=== PATIENT | male | born 1960 | race Caucasian/White ===

== ENCOUNTER 2016-08-12 14:41 | Inpatient (IN) | payer MEDICAID ==
[~2016-08-12] VITALS: Ht 167.6 cm; Wt 80.0 kg
[2016-08-12 15:15] VITALS: TEMP 98.3
--- NOTE | 2016-08-12 15:27 | ERA ---
ER Documentation Chief Complaint Date/Time DATE: 08/12/16 TIME: 15:27 Chief Complaint INTERMITTENT CP RADIATES TO BACK NON-PROVOKED [id number] HPI The patient is a 55-year-old male, presenting to the ER because of intermittent left-sided chest pain radiating to the back for the last 2 weeks, usually relieved with 1 nitroglycerin. The chest pain has happened more frequently. He went to see his physician at the clinic today who administered aspirin 325 mg p.o. and one nitroglycerin sublingual and transferred him to the ER for further evaluation. He was treated with 1 additional nitroglycerin spray by EMS with good response. He currently does not have any chest pain. When he did have chest pain, it lasted about 15-20 minutes. He denies similar symptoms previously. He does not have chest pain with exertion or vomiting or diaphoresis. He denies abdominal pain, vomiting, dysuria, diarrhea. He does not smoke nor drink Past medical history: Diabetes mellitus, hypertension, dyslipidemia, migraine, allergic rhinitis Past surgical history: Cardiac angiogram with angioplasty at [facility] in 2016, no stent placement ROS All systems reviewed and are negative except as per history of present illness. Medications Home Meds Reported Medications Metoprolol Tartrate* (Lopressor*) 25 Mg Tab, 25 MG PO BID, #60 TAB 08/12/16 Insulin Lispro (Humalog) 100 Unit/1 Ml Cartridge, 20 UNIT SQ 08/12/16 Insulin Lispro (Humalog Kwikpen) 200 Unit/1 Ml Insuln.pen, 200 UNIT SQ AC DINNER , EA 08/12/16 Insulin Glargine* (Lantus*) 100 Unit/Ml Soln, 0 SC BID, #1 VIAL 40 UNITS QAM AND 44 UNITS QHS 08/12/16 Metformin* (Glucophage*) 1,000 Mg Tablet, 1000 MG PO WITH BREAKFAST DINNE, #60 TAB 08/12/16 Nitroglycerin* (Nitrostat*) 0.4 Mg Tab.subl, 0.4 MG SL Q5MIN Y for CHEST PAIN, BOTTLE 08/12/16 Benazepril Hcl* (Benazepril Hcl*) 40 Mg Tablet, 40 MG PO DAILY, #30 TAB 08/12/16 Gabapentin* (Gabapentin*) 100 Mg Capsule, 100 MG PO BID, #90 CAP 08/12/16 Aspirin* (Aspirin* EC) 81 Mg Tablet.dr, 81 MG PO DAILY, TAB 08/12/16 Amitriptyline Hcl* (Amitriptyline Hcl*) 50 Mg Tablet, 50 MG PO QHS, #30 TAB 08/12/16 Atorvastatin* (Atorvastatin*) 80 Mg Tablet, 80 MG PO DAILY, #30 TAB 08/12/16 Famotidine* (Famotidine*) 20 Mg Tablet, 20 MG PO BID, #60 TAB 08/12/16 Loratadine* (Loratadine*) 10 Mg Tablet, 10 MG PO DAILY, #30 TAB 08/12/16 Ferrous Sulfate* (Ferrous Sulfate*) 325 Mg Tabec, 325 MG PO BID, TAB 08/12/16 [place]-3 Fatty Acids/Fish Oil (Fish Oil 1,000 mg Capsule) 1 Each Capsule, 1 EACH PO BID, CAP 08/12/16 Allergies Allergies: Coded Allergies: No Known Allergy (Unverified , 08/12/16) Physical Exam Vitals Vital Signs Date Time Temp Pulse Resp B/P Pulse Ox O2 Delivery O2 Flow Rate FiO2 08/12/16 17:41 58 18 146/83 99 Nasal Cannula 2.0 08/12/16 15:39 Nasal Cannula 2 08/12/16 15:15 98.3 68 18 146/79 99 Room Air 08/12/16 14:43 98.3 77 18 129/65 97 Physical Exam Const: No acute distress. Head: Atraumatic. Eyes: Normal Conjunctiva. ENT: Normal External Ears, Nose and Mouth. Neck: Full range of motion. No meningismus. Resp: Clear to auscultation bilaterally. Cardio: Regular rate and rhythm, no murmurs. Abd: Soft, non distended, normal bowel sounds, non tender. Skin: No petechiae or rashes. Back: No midline or flank tenderness. Ext: No cyanosis, or edema. Neur: Awake and alert. No focal deficit Psych: Normal Mood and Affect. Result Diagram: 08/12/16 1524 08/12/16 1524 Results 24 hrs Laboratory Tests Test 08/12/16 15:24 White Blood Count 7.410^3/ul Red Blood Count 4.1610^6/ul Hemoglobin 13.2g/dl Hematocrit 38.6% Mean Corpuscular Volume 92.8fl Mean Corpuscular Hemoglobin 31.7pg Mean Corpuscular Hemoglobin Concent 34.2g/dl Red Cell Distribution Width 12.6% Platelet Count 60823^3/UL Mean Platelet Volume 9.3fl Neutrophils % 57.0% Lymphocytes % 32.1% Monocytes % 7.9% Eosinophils % 2.4% Basophils % 0.3% Nucleated Red Blood Cells % 0.0/100WBC Neutrophils # 4.210^3/ul Lymphocytes # 2.410^3/ul Monocytes # 0.610^3/ul Eosinophils # 0.210^3/ul Basophils # 0.010^3/ul Nucleated Red Blood Cells # 0.010^3/ul Prothrombin Time 11.9Sec Prothrombin Time Ratio 0.9 INR International Normalized Ratio 0.88 Activated Partial Thromboplast Time 26.1Sec D-Dimer 236.80ng/ml D-Dimer Comment Sodium Level 136mmol/L Potassium Level 4.8mmol/L Chloride Level 99mmol/L Carbon Dioxide Level 27mmol/L Anion Gap 15 Blood Urea Nitrogen 12mg/dl Creatinine 0.69mg/dl Glucose Level 236mg/dl Hemoglobin A1c 10.1% Calcium Level 9.7mg/dl Troponin I < 0.012ng/ml Current Medications Medications (Trade) Dose Ordered Sig/Johnnie Route PRN Reason Start Time Stop Time Status Last Admin Dose Admin Amitriptyline HCl (Elavil) 50 mg QHS PO 08/12/16 21:00 UNV Aspirin (Halfprin) 81 mg DAILY PO 08/13/16 09:00 Atorvastatin Calcium (Lipitor) 80 mg DAILY PO 08/13/16 09:00 Benazepril HCl (Lotensin) 40 mg DAILY PO 08/13/16 09:00 Famotidine (Pepcid) 20 mg BID PO 08/12/16 21:00 Ferrous Sulfate (Ferrous Sulfate (Ec)) 325 mg BID PO 08/12/16 21:00 Gabapentin (Neurontin) 100 mg BID PO 08/12/16 21:00 Insulin Glargine (Lantus) 12 unit QHS SC 08/12/16 21:00 UNV Loratadine (Claritin) 10 mg DAILY PO 08/13/16 09:00 Metoprolol Tartrate (Lopressor) 25 mg BID PO 08/12/16 21:00 Fish Oil (Fish Oil) 1,000 mg BID PO 08/12/16 21:00 IV Flush (NS 3 ml) 3 ml PER PROTOCOL IV 08/12/16 17:30 Ondansetron HCl (Zofran Inj) 4 mg Q6H PRN IV NAUSEA AND/OR VOMITING 08/12/16 17:30 Acetaminophen (Tylenol Tab) 650 mg Q6H PRN PO PAIN LEVEL 1-3 OR FEVER 08/12/16 17:30 Acetaminophen (Tylenol Supp) 650 mg Q6H PRN [place] PAIN LEVEL 1-3 OR FEVER 08/12/16 17:30 Acetaminophen/ Hydrocodone Bitart ([place] (5/325)) 1 tab Q6H PRN PO MODERATE PAIN LEVEL 4-6 08/12/16 17:30 Acetaminophen/ Hydrocodone Bitart ([place] (5/325)) 2 tab Q6H PRN PO SEVERE PAIN LEVEL 7-10 08/12/16 17:30 Morphine Sulfate (morphine) 2 mg Q4H PRN IV SEVERE PAIN LEVEL 7-10 08/12/16 17:30 Docusate Sodium (Colace) 100 mg Q12H PRN PO CONSTIPATION 08/12/16 17:30 Magnesium Hydroxide (Milk Of Mag) 30 ml DAILY PRN PO CONSTIPATION 08/12/16 17:30 Bisacodyl (Dulcolax Supp) 10 mg DAILY PRN [place] CONSTIPATION 08/12/16 17:30 Heparin Sodium (Porcine) (Heparin (5000 Units/0.5 ml)) 5,000 unit Q12 SC 08/12/16 21:00 Insulin Aspart (Novolog Insulin Pen) NOVOLOG *MILD* ALGORITHM WITH MEALS BEDTIME SC 08/12/16 18:00 UNV Insulin Aspart (Novolog Insulin Pen) 4 unit WITH MEALS SC 08/12/16 18:00 UNV Miscellaneous Information (* Miscellaneous Pharmacy Order) HYPOGLYCEMIA PROTOCOL w... ONCE ONCE XX 08/12/16 17:30 08/12/16 17:51 DC Miscellaneous Information (* Miscellaneous Pharmacy Order) Discontinue Glyburide, Glipizide,... ONCE ONCE XX 08/12/16 17:30 08/12/16 17:50 DC Miscellaneous Information (* Miscellaneous Pharmacy Order) Discontinue all previ... ONCE ONCE XX 08/12/16 17:30 08/12/16 17:50 DC Nitroglycerin (Nitroglycerin (Sl Tab) 0.4 Mg) 1 tab Q5M PRN SL CHEST PAIN 08/12/16 17:30 Miscellaneous Information 1 ea NOTE XX 08/12/16 18:00 Glucose (Glutose) 15 gm Q15M PRN PO DECREASED GLUCOSE 08/12/16 18:00 Glucose (Glutose) 22.5 gm Q15M PRN PO DECREASED GLUCOSE 08/12/16 18:00 Dextrose (D50w Syringe) 25 ml Q15M PRN IV DECREASED GLUCOSE 08/12/16 18:00 Dextrose (D50w Syringe) 50 ml Q15M PRN IV DECREASED GLUCOSE 08/12/16 18:00 Glucagon (Glucagen) 1 mg Q15M PRN IM DECREASED GLUCOSE 08/12/16 18:00 Glucose (Glutose) 15 gm Q15M PRN BUCCAL DECREASED GLUCOSE 08/12/16 18:00 Procedures/MDM EKG: At 3:40 PM read by emergency physician Rate/Rhythm: Normal Sinus Rhythm 69 beats/min QRS, ST, T-waves: No ST elevation, no T inversion, right bundle branch block , inferior Q waves and T inversion, anterior T-wave abnormality Impression: Abnormal EKG EKG: At 5:29 PM read by emergency physician Rate/Rhythm: Normal Sinus Rhythm 66 beats/min QRS, ST, T-waves: No ST elevation, no T inversion, right bundle branch block , inferior , lateral T-wave abnormality Impression: Abnormal EKG [place] [id number] Radiology Main Line: [phone] DIAGNOSTIC IMAGING REPORT Patient: SAL WOOD : 1960 Age: 55 Sex: M MR #: [id number] DOS: 08/12/16 1536 Ordering MD: FATOUMATA RICHARDSON MD Location: E/R Room/Bed: PROCEDURE: XR Chest. CLINICAL INDICATION: chest pain TECHNIQUE: Single frontal view of the chest was obtained COMPARISON: None FINDINGS: The heart and mediastinum are within normal limits. There are mild linear bibasilar atelectatic changes. The lungs are otherwise clear. There is no pleural effusion or pneumothorax. RPTAT: AA IMPRESSION: Mild linear bibasilar atelectatic changes. .Art Smith MD, Date Time Electronically viewed and signed by .Art Smith MD, on 08/12/2016 15: 59 .S/ CC: FATOUMATA RICHARDSON MD MEDICAL MAKING DECISION: The patient is a 55-year-old male with multiple cardiac risk factors, presenting with acute chest pain that is concerning for ACS. His chest pain is minimal in the emergency department. The differential diagnoses considered include but are not limited to acute coronary syndrome, acute myocardial infarction, pericarditis, pulmonary embolism , aortic dissection, pneumonia, pleural effusion, pneumothorax, GERD, chest wall pain. Departure Diagnosis: Primary Impression: Chest pain Additional Impression: Anemia Condition: Stable Comments I discussed the findings with the patient. I discussed the patient with the on- call hospitalist Dr. Spence at 4:40 PM who was made aware of the lab, the treatment, the patient condition. The patient is admitted to telemetry FATOUMATA RICHARDSON MD August 12, 2016 15:27
[2016-08-12 15:48] LABS: ADD SCAN DIFF NO
[2016-08-12 15:52] LABS: BASOPHILS % 0.3 % (0.0-2.0); EOSINOPHILS # 0.2 10^3/ul (0.0-0.5); EOSINOPHILS % 2.4 % (0.0-7.0); HEMATOCRIT 38.6 % (42.0-52.0); HEMOGLOBIN 13.2 g/dl (14.0-18.0); LYMPHOCYTES # 2.4 10^3/ul (0.8-2.9); LYMPHOCYTES % 32.1 % (15.0-51.0); MEAN CORPUSCULAR HEMOGLOBIN 31.7 pg (29.0-33.0); MEAN CORPUSCULAR HGB CONC 34.2 g/dl (32.0-37.0); MEAN CORPUSCULAR VOLUME 92.8 fl (82.0-101.0); MEAN PLATELET VOLUME 9.3 fl (7.4-10.4); MONOCYTE # 0.6 10^3/ul (0.3-0.9); MONOCYTES % 7.9 % (0.0-11.0); NEUTROPHIL # 4.2 10^3/ul (1.6-7.5); PLATELET COUNT 316 10^3/UL (140-415); RED BLOOD COUNT 4.16 10^6/ul (4.70-6.10); RED CELL DISTRIBUTION WIDTH 12.6 % (11.5-14.5); WHITE BLOOD COUNT 7.4 10^3/ul (4.8-10.8)
--- NOTE | 2016-08-12 15:59 | RADRPT ---
PROCEDURE: XR Chest. CLINICAL INDICATION: chest pain TECHNIQUE: Single frontal view of the chest was obtained COMPARISON: None FINDINGS: The heart and mediastinum are within normal limits. There are mild linear bibasilar atelectatic changes. The lungs are otherwise clear. There is no pleural effusion or pneumothorax. RPTAT: AA IMPRESSION: Mild linear bibasilar atelectatic changes. .Art Smith MD, MD Date Time Electronically viewed and signed by .Art Smith MD, on 08/12/2016 15:59 .S/
[2016-08-12] MEDS ORDERED: LORA10TA3 PO (16:05)
[2016-08-12] MEDS ORDERED: FER325 PO (16:05)
[2016-08-12] MEDS ORDERED: OMEG-135 PO (16:05)
[2016-08-12] MEDS ORDERED: FAMO20TA18 PO (16:06)
[2016-08-12] MEDS ORDERED: ATOR80TA75 PO (16:06)
[2016-08-12] MEDS ORDERED: AMIT50TA3 PO (16:07)
[2016-08-12] MEDS ORDERED: ASPI-664 PO (16:07)
[2016-08-12] MEDS ORDERED: BENA40TA41 PO (16:08)
[2016-08-12] MEDS ORDERED: NIT4 SL (16:08)
[2016-08-12] MEDS ORDERED: GABA100C14 PO (16:08)
[2016-08-12] MEDS ORDERED: MTF1000T PO (16:09)
[2016-08-12] MEDS ORDERED: LANT3I SC (16:10)
[2016-08-12] MEDS ORDERED: INSU200I SQ (16:11)
[2016-08-12] MEDS ORDERED: INSU100C SQ (16:11)
[2016-08-12 16:15] LABS: ANION GAP 15 (8-16); BLOOD UREA NITROGEN 12 mg/dl (7-20); CALCIUM 9.7 mg/dl (8.4-10.2); CARBON DIOXIDE 27 mmol/L (21-31); CHLORIDE 99 mmol/L (97-110); CREATININE 0.69 mg/dl (0.61-1.24); GLUCOSE 236 mg/dl (70-220); POTASSIUM 4.8 mmol/L (3.5-5.1); SODIUM 136 mmol/L (135-144)
[2016-08-12] MEDS ORDERED: METO-448 PO (16:20)
[2016-08-12 16:21] LABS: INR 0.88; PROTIME 11.9 Sec (12.2-14.2); PT RATIO 0.9
[2016-08-12 16:22] LABS: PARTIAL THROMBOPLASTIN TIME 26.1 Sec (25.0-35.0)
[2016-08-12 16:24] LABS: D-DIMER 236.8 ng/ml (<460)
[2016-08-12 16:36] LABS: TROPONIN-I < 0.012 ng/ml (0.00-0.12)
--- NOTE | 2016-08-12 17:27 | HP ---
Date/Time of Note Date/Time of Note DATE: 08/12/16 TIME: 17:21 Assessment/Plan VTE Prophylaxis VTE Prophylaxis Intervention: heparin Lines/Catheters IV Catheter Type (from [facility]): Saline Lock Assessment/Plan Chief Complaint/Hosp Course Impression and plan 1. Chest pain. Rule out ACS. Follow-up until troponins. Follow-up on echocardiogram. Considering patient's medical history we will get cardiology consultation. Of note patient did report he had a angiogram 2015 without stent placed. He did mention that he had "opening of my arteries" at that time. Will monitor on telemetry 2. Essential hypertension. Continue antihypertensives and adjust as needed 3. History of dyslipidemia. Follow-up on fasting lipid panel. Patient to be resumed on statin medication 4. History of diabetes. Follow-up on A1c. Continue on insulin regimen. Will adjust as needed. 5. History of CAD. Continue on ASA and statin 6. Iron deficiency anemia. Will resume patient's iron supplement DVT prophylaxis: Heparin Admission process 40 minutes Discussed plan of care with Dr. Spence Problems: HPI/ROS Admit Date/Time Admit Date/Time Hx of Present Illness Is a 55-year-old male with history of coronary artery disease, hypertension, dysrhythmia, diabetes, iron deficiency anemia, who came to [facility] due to reports of chest pain. According to the patient he had been having intermittent chest pain for 2 weeks duration. He reported that it would occur at times when he would lie down and sometimes even when sitting down and resting. He reported no obvious exertional chest pain. he stated that the pain was initially sharp and then became pressure-like in nature 10 out of 10 on the left side of his body. He also had associated shortness of breath. Of note he does state that he takes nitro whenever he has chest pain and took it when it started 2 weeks ago 1 with relief. Patient did report that his chest pain had worsened last night around 11:30 PM that woke him up and then went to his clinic to see his primary physician on the day of his admission and was told to go to the hospital due to his persistent chest pain. Of note he was given aspirin 325 mg there and then also took 1 dose of oral nitro as well as nitro via spray which she did report having good relief. On arrival to the hospital initial troponin was negative. He was seen with some hyperglycemia with glucose of 236 and some anemia with hemoglobin of 13.2 and hematocrit of 38.6. Chest x-ray only showed mild linear bibasilar atelectatic changes. Vital signs otherwise stable. We will evaluate him for the aformentiond issues ROS 12 point review of systems obtained entirely negative except that mentioned in history of present illness PMH/Family/Social Past Medical History Medical/surgical history 1. History of coronary artery disease with previous angiogram in 2016 (no stent placed at that time) 2. Hypertension 3. Diabetes 4. Dyslipidemia Social History Smoking Status: Never smoker Exam/Review of Systems Vital Signs Vitals Vital Signs Date Time Temp Pulse Resp B/P Pulse Ox O2 Delivery O2 Flow Rate FiO2 08/12/16 15:39 Nasal Cannula 2 08/12/16 15:15 98.3 68 18 146/79 99 Exam Constitutional: alert, oriented Psych: nl mood/affect, no complaints Head: normocephalic Neck: supple, No jvd Respiratory: clear to auscultation, normal air movement Cardiovascular: regular rate and rhythm Gastrointestinal: non-tender, soft Musculoskeletal: nl extremities to inspection, nl gait and stance Extremities: normal pulses Labs Result Diagram: 08/12/16 1524 08/12/16 1524 Medications Medications Current Medications Amitriptyline HCl (Elavil) 50 mg QHS PO ; Start 08/12/16 at 21:00; Status UNV Aspirin (Halfprin) 81 mg DAILY PO ; Start 08/13/16 at 09:00; Status UNV Atorvastatin Calcium (Lipitor) 80 mg DAILY PO ; Start 08/13/16 at 09:00; Status UNV Benazepril HCl (Lotensin) 40 mg DAILY PO ; Start 08/13/16 at 09:00; Status UNV Famotidine (Pepcid) 20 mg BID PO ; Start 08/12/16 at 21:00; Status UNV Ferrous Sulfate (Ferrous Sulfate (Ec)) 325 mg BID PO ; Start 08/12/16 at 21:00; Status UNV Gabapentin (Neurontin) 100 mg BID PO ; Start 08/12/16 at 21:00; Status UNV Insulin Glargine (Lantus) 12 unit QHS SC ; Start 08/12/16 at 21:00; Status UNV Loratadine (Claritin) 10 mg DAILY PO ; Start 08/13/16 at 09:00; Status UNV Metoprolol Tartrate (Lopressor) 25 mg BID PO ; Start 08/12/16 at 21:00; Status UNV Miscellaneous Information 1 each BID PO ; Start 08/12/16 at 21:00; Status UNV Ondansetron HCl (Zofran Inj) 4 mg Q6H PRN IV NAUSEA AND/OR VOMITING; Start at 17:30; Status UNV Acetaminophen (Tylenol Tab) 650 mg Q6H PRN PO PAIN LEVEL 1-3 OR FEVER; Start at 17:30; Status UNV Acetaminophen (Tylenol Supp) 650 mg Q6H PRN [place] PAIN LEVEL 1-3 OR FEVER; Start 08/12/16 at 17:30; Status UNV Acetaminophen/ Hydrocodone Bitart ([place] (5/325)) 1 tab Q6H PRN PO MODERATE PAIN LEVEL 4-6; Start 08/12/16 at 17:30; Status UNV Acetaminophen/ Hydrocodone Bitart ([place] (5/325)) 2 tab Q6H PRN PO SEVERE PAIN LEVEL 7-10; Start 08/12/16 at 17:30; Status UNV Morphine Sulfate (morphine) 2 mg Q4H PRN IV SEVERE PAIN LEVEL 7-10; Start 08/12 at 17:30; Status UNV Docusate Sodium (Colace) 100 mg Q12H PRN PO CONSTIPATION; Start 08/12/16 at 17: 30; Status UNV Magnesium Hydroxide (Milk Of Mag) 30 ml DAILY PRN PO CONSTIPATION; Start at 17:30; Status UNV Bisacodyl (Dulcolax Supp) 10 mg DAILY PRN [place] CONSTIPATION; Start 08/12/16 at 17 :30; Status UNV Heparin Sodium (Porcine) (Heparin (5000 Units/0.5 ml)) 5,000 unit Q12 SC ; Start 08/12/16 at 21:00; Status UNV Miscellaneous Information (* Miscellaneous Pharmacy Order) HYPOGLYCEMIA PROTOCOL w... ONCE ONCE XX ; Start 08/12/16 at 17:30; Stop 08/12/16 at 17:31; Status UNV Miscellaneous Information (* Miscellaneous Pharmacy Order) Discontinue Glyburide , Glipizide,... ONCE ONCE XX ; Start 08/12/16 at 17:30; Stop 08/12/16 at 17:31 ; Status UNV Miscellaneous Information (* Miscellaneous Pharmacy Order) Discontinue all previ... ONCE ONCE XX ; Start 08/12/16 at 17:30; Stop 08/12/16 at 17:31; Status UNV Nitroglycerin (Nitroglycerin (Sl Tab) 0.4 Mg) 1 tab Q5M PRN SL CHEST PAIN; Start 08/12/16 at 17:30; Status UNV MAYO LORENZ August 12, 2016 17:27
[2016-08-12] MEDS ORDERED: ACETAMINOPHEN 650 MG SUPP PR PRN (17:30)
[2016-08-12] MEDS ORDERED: NACL 0.9% 3 ML SYG IV SCH (17:30)
[2016-08-12] MEDS ORDERED: MAGNESIUM HYDROXIDE 30ML CUP PO PRN (17:30)
[2016-08-12] MEDS ORDERED: ONDANSETRON 4 MG INJ IV PRN (17:30)
[2016-08-12] MEDS ORDERED: ACETAMINOPHEN 325 MG TAB PO PRN (17:30)
[2016-08-12] MEDS ORDERED: HYDROCODONE/APAP (5/325) TAB PO PRN ×2 (17:30)
[2016-08-12] MEDS ORDERED: DOCUSATE SODIUM 100 MG CAP PO PRN (17:30)
[2016-08-12] MEDS ORDERED: NITROGLYCERIN (SL) 0.4 MG TAB SL PRN (17:30)
[2016-08-12] MEDS ORDERED: morphine 2 MG INJ IV PRN (17:30)
[2016-08-12] MEDS ORDERED: BISACODYL 10 MG SUPP PR PRN (17:30)
[2016-08-12] MEDS ORDERED: GLUCOSE GEL 15 GRAM TUBE BUCCAL PRN (18:00)
[2016-08-12] MEDS ORDERED: GLUCOSE GEL 15 GRAM TUBE PO PRN ×2 (18:00)
[2016-08-12] MEDS ORDERED: DEXTROSE 50% 50 ML SYRINGE IV PRN ×2 (18:00)
[2016-08-12] MEDS ORDERED: GLUCAGON 1 MG INJ IM PRN (18:00)
[2016-08-12 18:53] VITALS: BP 165/79; PULSE 62; RESP 18
[2016-08-12 19:51] VITALS: BP 127/73; RESP 19
[2016-08-12 20:00] VITALS: PULSE 56; Ht 167.6 cm; Wt 80.0 kg
[2016-08-12 20:34] LABS: CREATINE KINASE 65 IU/L (23-200)
[2016-08-12 20:49] LABS: CK-MB < 0.22 ng/ml (0.0-2.4); TROPONIN-I < 0.012 ng/ml (0.00-0.12)
[2016-08-12] MEDS: INSULIN ASPART [NOVOLOG] 3 ML PEN SC SCH (21:00)
[2016-08-12] MEDS: FISH OIL 1,000 MG CAP PO SCH (21:25)
[2016-08-12] MEDS: FAMOTIDINE 20 MG TAB PO SCH (21:25)
[2016-08-12] MEDS: FERROUS SULFATE (EC) 325 MG TAB PO SCH (21:25)
[2016-08-12] MEDS: GABAPENTIN 100 MG CAP PO SCH (21:25)
[2016-08-12] MEDS: AMITRIPTYLINE 50 MG TAB PO SCH (21:25)
[2016-08-12] MEDS: INSULIN GLARGINE [LANtus] 3 ML PEN SC SCH (21:29)
[2016-08-12] MEDS: HEPARIN 5,000 UNIT/0.5 ML VIAL SC SCH (21:30)
[2016-08-12] MEDS: METOPROLOL 25 MG TAB PO SCH (21:50)
[2016-08-13] VITALS (13 sets, daily range): BP systolic 120–145; BP diastolic 60–82; PULSE 57–62; RESP 18–20
[2016-08-13 04:35] LABS: POTASSIUM 3.7 mmol/L (3.5-5.1)
[2016-08-13 04:37] LABS: BILIRUBIN,INDIRECT 0.7 mg/dl (0-1.1); BILIRUBIN,TOTAL 0.7 mg/dl (0.2-1.3); CREATININE 0.67 mg/dl (0.61-1.24)
[2016-08-13 04:38] LABS: ALBUMIN/GLOBULIN RATIO 1.25; CALCIUM 9.3 mg/dl (8.4-10.2); PHOSPHORUS 4.8 mg/dl (2.5-4.9); TOTAL PROTEIN 7.2 g/dl (6.1-8.1)
[2016-08-13 04:39] LABS: MAGNESIUM 1.8 mg/dl (1.7-2.5)
[2016-08-13 04:45] LABS: CREATINE KINASE 64 IU/L (23-200)
[2016-08-13 04:48] LABS: CK-MB < 0.22 ng/ml (0.0-2.4)
[2016-08-13 04:54] LABS: TROPONIN-I < 0.012 ng/ml (0.00-0.12)
[2016-08-13 05:38] LABS: T3 UPTAKE 32.6 % (23.5-40.5)
[2016-08-13 05:52] LABS: THYROID STIMULATING HORMONE 1.54 MIU/L (0.465-4.680)
[2016-08-13] MEDS: INSULIN ASPART [NOVOLOG] 3 ML PEN SC SCH ×7 (07:52→21:21)
[2016-08-13] MEDS: HEPARIN 5,000 UNIT/0.5 ML VIAL SC SCH ×2 (08:44→21:20)
[2016-08-13] MEDS: GABAPENTIN 100 MG CAP PO SCH ×2 (09:00→21:15)
[2016-08-13] MEDS: METOPROLOL 25 MG TAB PO SCH ×2 (09:00→21:15)
[2016-08-13] MEDS: FAMOTIDINE 20 MG TAB PO SCH ×2 (09:00→21:15)
[2016-08-13] MEDS: ASPIRIN (EC) 81 MG TAB PO SCH (09:00)
[2016-08-13] MEDS: FISH OIL 1,000 MG CAP PO SCH ×2 (09:00→21:15)
[2016-08-13] MEDS: LORATADINE 10 MG TAB PO SCH (09:00)
[2016-08-13] MEDS: BENAZEPRIL 40 MG TAB PO SCH (09:00)
[2016-08-13] MEDS: FERROUS SULFATE (EC) 325 MG TAB PO SCH ×2 (09:00→21:15)
[2016-08-13] MEDS: ATORVASTATIN 80 MG TAB PO SCH (09:00)
[2016-08-13 10:52] LABS: CREATINE KINASE 60 IU/L (23-200)
[2016-08-13 11:34] LABS: CK-MB < 0.22 ng/ml (0.0-2.4)
[2016-08-13 11:57] LABS: TROPONIN-I < 0.012 ng/ml (0.00-0.12)
--- NOTE | 2016-08-13 20:40 | PN ---
Date/Time of Note Date/Time of Note DATE: 08/13/16 TIME: 20:29 Assessment/Plan VTE Prophylaxis VTE Prophylaxis Intervention: heparin Lines/Catheters IV C[facility] Type (from [facility] Saline Lock Urinary Cath still in place: No Assessment/Plan Chief Complaint/Hosp Course Impression and plan 1. Chest pain. serial troponins negative. Follow-up on echocardiogram. Awaiting cardiology consultation . Of note patient did report he had a angiogram 2015 without stent placed. 2. Essential hypertension. Continue antihypertensives and adjust as needed 3. History of dyslipidemia. continue on statin medication 4. History of diabetes. Continue on insulin regimen. Will adjust as needed. 5. History of CAD. Continue on ASA and statin 6. Iron deficiency anemia. Will resume patient's iron supplement DVT prophylaxis: Heparin DISPO/PLAN: follow up with cardiology recs. continue telemetry monitoring Discussed plan of care with Dr. Spence Problems: Subjective 24 Hr Interval Summary Free Text/Dictation does not report chest pain at this time Exam/Review of Systems Vital Signs Vitals Vital Signs Date Time Temp Pulse Resp B/P Pulse Ox O2 Delivery O2 Flow Rate FiO2 08/13/16 20:22 62 08/13/16 20:08 98.0 20 143/79 96 08/12/16 18:53 Room Air 08/12/16 17:41 2.0 Intake and Output 08/12/16 08/12/16 08/13/16 14:59 22:59 06:59 Intake Total 100 ml Output Total 2 ml Balance 98 ml Exam Constitutional: alert, oriented Psych: nl mood/affect Head: normocephalic Neck: supple, No jvd Respiratory: clear to auscultation Cardiovascular: regular rate and rhythm Gastrointestinal: non-tender, soft Musculoskeletal: nl extremities to inspection Neurological: MANAGER REGISTRATION II-XII intact, nl mental status, nl speech Skin: No rash or lesions Results Result Diagram: 08/12/16 1524 08/13/16 0337 Results 24 hrs Laboratory Tests Test 08/12/16 20:48 08/13/16 03:37 08/13/16 07:50 08/13/16 10:20 Bedside Glucose 126 89 Sodium Level 144 Potassium Level 3.7 Chloride Level 102 Carbon Dioxide Level 28 Anion Gap 18 H Blood Urea Nitrogen 10 Creatinine 0.67 Glucose Level 74 # Calcium Level 9.3 Phosphorus Level 4.8 Magnesium Level 1.8 Total Bilirubin 0.7 Direct Bilirubin 0.00 Indirect Bilirubin 0.7 Aspartate Amino Transf (AST/SGOT) 54 H Alanine Aminotransferase (ALT/SGPT) 93 H Alkaline Phosphatase 59 Creatine Kinase 64 60 Creatine Kinase Index 0.3 0.4 Creatinine Kinase MB (Mass) < 0.22 < 0.22 Troponin I < 0.012 < 0.012 Total Protein 7.2 Albumin 4.0 Globulin 3.20 Albumin/Globulin Ratio 1.25 Triglycerides Level 135 Cholesterol Level 124 LDL Cholesterol, Calculated 56 HDL Cholesterol 41 Cholesterol/HDL Ratio 3.0 Thyroid Stimulating Hormone (TSH) 1.540 Free Thyroxine Index 2.31 Thyroxine (T4) 7.1 Triiodothyronine (T3) Uptake 32.6 Test 08/13/16 11:24 08/13/16 17:01 Bedside Glucose 90 91 Medications Medications Current Medications Amitriptyline HCl (Elavil) 50 mg QHS PO Last administered on 08/12/16 21:25; Admin Dose 50 MG; Start 08/12/16 at 21:00 Aspirin (Halfprin) 81 mg DAILY PO ; Start 08/13/16 at 09:00 Atorvastatin Calcium (Lipitor) 80 mg DAILY PO ; Start 08/13/16 at 09:00 Benazepril HCl (Lotensin) 40 mg DAILY PO ; Start 08/13/16 at 09:00 Famotidine (Pepcid) 20 mg BID PO Last administered on 08/12/16 21:25; Admin Dose 20 MG; Start 08/12/16 at 21:00 Ferrous Sulfate (Ferrous Sulfate (Ec)) 325 mg BID PO Last administered on 21:25; Admin Dose 325 MG; Start 08/12/16 at 21:00 Gabapentin (Neurontin) 100 mg BID PO Last administered on 08/12/16 21:25; Admin Dose 100 MG; Start 08/12/16 at 21:00 Insulin Glargine (Lantus) 12 unit QHS SC Last administered on 08/12/16 21:29; Admin Dose 12 UNIT; Start 08/12/16 at 21:00 Loratadine (Claritin) 10 mg DAILY PO ; Start 08/13/16 at 09:00 Metoprolol Tartrate (Lopressor) 25 mg BID PO Last administered on 08/12/16 21: 50; Admin Dose 25 MG; Start 08/12/16 at 21:00 Fish Oil (Fish Oil) 1,000 mg BID PO Last administered on 08/12/16 21:25; Admin Dose 1,000 MG; Start 08/12/16 at 21:00 Ondansetron HCl (Zofran Inj) 4 mg Q6H PRN IV NAUSEA AND/OR VOMITING; Start at 17:30 Acetaminophen (Tylenol Tab) 650 mg Q6H PRN PO PAIN LEVEL 1-3 OR FEVER; Start at 17:30 Acetaminophen (Tylenol Supp) 650 mg Q6H PRN [place] PAIN LEVEL 1-3 OR FEVER; Start 08/12/16 at 17:30 Acetaminophen/ Hydrocodone Bitart ([place] (5/325)) 1 tab Q6H PRN PO MODERATE PAIN LEVEL 4-6; Start 08/12/16 at 17:30 Acetaminophen/ Hydrocodone Bitart ([place] (5/325)) 2 tab Q6H PRN PO SEVERE PAIN LEVEL 7-10; Start 08/12/16 at 17:30 Morphine Sulfate (morphine) 2 mg Q4H PRN IV SEVERE PAIN LEVEL 7-10; Start 08/12 at 17:30 Docusate Sodium (Colace) 100 mg Q12H PRN PO CONSTIPATION; Start 08/12/16 at 17: 30 Magnesium Hydroxide (Milk Of Mag) 30 ml DAILY PRN PO CONSTIPATION; Start at 17:30 Bisacodyl (Dulcolax Supp) 10 mg DAILY PRN [place] CONSTIPATION; Start 08/12/16 at 17 :30 Heparin Sodium (Porcine) (Heparin (5000 Units/0.5 ml)) 5,000 unit Q12 SC Last administered on 08/13/16 08:44; Admin Dose 5,000 UNIT; Start 08/12/16 at 21:00 Nitroglycerin (Nitroglycerin (Sl Tab) 0.4 Mg) 1 tab Q5M PRN SL CHEST PAIN; Start 08/12/16 at 17:30 Miscellaneous Information 1 ea NOTE XX ; Start 08/12/16 at 18:00 Glucose (Glutose) 15 gm Q15M PRN PO DECREASED GLUCOSE; Start 08/12/16 at 18:00 Glucose (Glutose) 22.5 gm Q15M PRN PO DECREASED GLUCOSE; Start 08/12/16 at 18: 00 Dextrose (D50w Syringe) 25 ml Q15M PRN IV DECREASED GLUCOSE; Start 08/12/16 at 18:00 Dextrose (D50w Syringe) 50 ml Q15M PRN IV DECREASED GLUCOSE; Start 08/12/16 at 18:00 Glucagon (Glucagen) 1 mg Q15M PRN IM DECREASED GLUCOSE; Start 08/12/16 at 18:00 Glucose (Glutose) 15 gm Q15M PRN BUCCAL DECREASED GLUCOSE; Start 08/12/16 at 18 :00 MAYO LORENZ August 13, 2016 20:40
[2016-08-13] MEDS: AMITRIPTYLINE 50 MG TAB PO SCH (21:15)
[2016-08-13] MEDS: INSULIN GLARGINE [LANtus] 3 ML PEN SC SCH (21:40)
[2016-08-14] VITALS (10 sets, daily range): BP systolic 120–130; BP diastolic 62–77; PULSE 54–73; RESP 18–20
[2016-08-14] MEDS: INSULIN ASPART [NOVOLOG] 3 ML PEN SC SCH ×4 (08:12→12:07)
[2016-08-14] MEDS: ATORVASTATIN 80 MG TAB PO SCH (08:15)
[2016-08-14] MEDS: FISH OIL 1,000 MG CAP PO SCH (08:15)
[2016-08-14] MEDS: ASPIRIN (EC) 81 MG TAB PO SCH (08:15)
[2016-08-14] MEDS: GABAPENTIN 100 MG CAP PO SCH (08:15)
[2016-08-14] MEDS: LORATADINE 10 MG TAB PO SCH (08:15)
[2016-08-14] MEDS: FERROUS SULFATE (EC) 325 MG TAB PO SCH (08:16)
[2016-08-14] MEDS: FAMOTIDINE 20 MG TAB PO SCH (08:16)
[2016-08-14] MEDS: METOPROLOL 25 MG TAB PO SCH (08:17)
[2016-08-14] MEDS: BENAZEPRIL 40 MG TAB PO SCH (08:17)
[2016-08-14] MEDS: HEPARIN 5,000 UNIT/0.5 ML VIAL SC SCH (08:58)
--- NOTE | 2016-08-14 10:02 | RADRPT ---
Echocardiogram Report Patient Name: SAL WOOD Gender: Male Date: 1960 Study Date: 13-Aug-2016 Validation Analyst: ANA Location: E Ref. Physician: MAYO LORENZ Quality: Adequate Procedures: Transthoracic echocardiogram with complete 2D, M-Mode, and Doppler examination. Indications: Chest Pain. 2D/M Mode Doppler Measurement Value Normal Ranges Measurement Value Normal Ranges AoR Diam MM 3.8 cm AV Peak Domingo 0.9 m/sec ACS MM 2.0 cm AV Peak PG 3.3 mmHg LVIDd 2D 4.5 3.5 - 5.6 cm LVOT Peak Domingo 0.8 m/sec LVIDs 2D 2.8 2.1 - 4.1 cm LVOT Peak PG 2.7 mmHg LVPWd 2D 0.9 0.6 - 1.1 cm MV E Peak Domingo 0.5 m/sec IVSd 2D 1.0 0.6 - 1.1 cm MV A Peak Domingo 0.5 m/sec EDV 2D 91.1 cm3 MV E/A 1.1 ESV 2D 21.8 cm3 MV Decel Time 290 msec LA Dimen 2D 3.5 2.3 - 4.0 cm MV Decel [place] 2 MV E/A 1.1 TR Peak Domingo 2.3 m/sec TR Peak PG 21.0 mmHg PV Peak Domingo 1.1 m/sec PV Peak PG 5.0 mmHg RVSP 24.0 mmHg Findings Left Ventricle: Normal left ventricular systolic function. Normal left ventricular cavity size. Normal left ventricular wall thickness. Ejection fraction is visually estimated at 55 %. Tissue Doppler/Mitral Doppler indices are within normal limits. E/E`=5. Right Ventricle: Normal right ventricular size. Normal right ventricular systolic function. Left Atrium: The left atrium is normal in size. Right Atrium: The right atrium is normal in size. Atrial Septum: Normal atrial septum. Mitral Valve: Normal appearance of the mitral valve. Trace mitral regurgitation. Aortic Valve: Normal appearance of the aortic valve. No hemodynamically significant aortic stenosis by doppler. [place] aortic valve. Trace aortic valve regurgitation. Tricuspid Valve: Normal appearance of the tricuspid valve. Estimated peak PA systolic pressure 24 mmHg. There is trace tricuspid regurgitation. Pulmonic Valve: Normal pulmonic valve appearance. No evidence of pulmonic regurgitation. Pericardium: Normal pericardium with no significant pericardial effusion. Aorta: Normal aortic root. IVC: Normal size and normal respiratory collapse consistent with normal right atrial pressure. Pulmonary Artery: Normal pulmonary artery size. Conclusions 1.Normal left ventricular systolic function. Normal left ventricular cavity size. Normal left ventricular wall thickness. Ejection fraction is visually estimated at 55 %. Tissue Doppler/Mitral Doppler indices are within normal limits. E/E`=5. 2.Normal appearance of the mitral valve. Trace mitral regurgitation. 3.Normal appearance of the aortic valve. No hemodynamically significant aortic stenosis by doppler. [place] aortic valve. Trace aortic valve regurgitation. 4.Normal appearance of the tricuspid valve. Estimated peak PA systolic pressure 24 mmHg. There is trace tricuspid regurgitation. 5.Normal pulmonic valve appearance. No evidence of pulmonic regurgitation. 6.Normal pericardium with no significant pericardial effusion. Electronically Signed By: Demi Miller 14-Aug-2016 10:01:21 -0700 Patient Name: SAL WOOD Study Date: 13-Aug-2016 [id number]
--- NOTE | 2016-08-14 10:23 | PN ---
Date/Time of Note Date/Time of Note DATE: 08/14/16 TIME: 10:21 Assessment/Plan VTE Prophylaxis VTE Prophylaxis Intervention: SCD's Lines/Catheters IV Catheter Type (from Nrsg): Saline Lock Urinary Cath still in place: No Assessment/Plan Assessment/Plan CAD HTN HLP -atypial hx, nromal trops, no ischmei by ekg -remains wihtout symptoms -d/c planning Subjective 24 Hr Interval Summary Free Text/Dictation Is a 55-year-old male with history of coronary artery disease, hypertension, dysrhythmia, diabetes, iron deficiency anemia, who came to [facility] due to reports of chest pain. According to the patient he had been having intermittent chest pain for 2 weeks duration. He reported that it would occur at times when he would lie down and sometimes even when sitting down and resting. He reported no obvious exertional chest pain. he stated that the pain was initially sharp and then became pressure-like in nature 10 out of 10 on the left side of his body. He also had associated shortness of breath. Of note he does state that he takes nitro whenever he has chest pain and took it when it started 2 weeks ago 1 with relief. Patient did report that his chest pain had worsened last night around 11:30 PM that woke him up and then went to his clinic to see his primary physician on the day of his admission and was told to go to the hospital due to his persistent chest pain. Of note he was given aspirin 325 mg there and then also took 1 dose of oral nitro as well as nitro via spray which she did report having good relief. On arrival to the hospital initial troponin was negative. He was seen with some hyperglycemia with glucose of 236 and some anemia with hemoglobin of 13.2 and hematocrit of 38.6. Chest x-ray only showed mild linear bibasilar atelectatic changes. Vital signs otherwise stable. We will evaluate him for the aformentiond issues. His symtpomt are very atypical, remains asymptomatic and no exertional sytmptoms Exam/Review of Systems Vital Signs Vitals Vital Signs Date Time Temp Pulse Resp B/P Pulse Ox O2 Delivery O2 Flow Rate FiO2 08/14/16 08:02 73 08/14/16 07:56 98.1 18 130/74 97 08/12/16 18:53 Room Air 08/12/16 17:41 2.0 Intake and Output 08/13/16 08/13/16 08/14/16 15:00 23:00 07:00 Intake Total 200 ml 500 ml Output Total 1 ml 3 ml Balance 199 ml 497 ml Results Result Diagram: 08/12/16 1524 08/13/16 0337 Results 24 hrs Laboratory Tests Test 08/13/16 11:24 08/13/16 17:01 08/13/16 21:18 08/14/16 02:34 Bedside Glucose 90 91 208 253 H Test 08/14/16 07:48 Bedside Glucose 194 Medications Medications Current Medications Amitriptyline HCl (Elavil) 50 mg QHS PO Last administered on 08/13/16 21:15; Admin Dose 50 MG; Start 08/12/16 at 21:00 Aspirin (Halfprin) 81 mg DAILY PO Last administered on 08/14/16 08:15; Admin Dose 81 MG; Start 08/13/16 at 09:00 Atorvastatin Calcium (Lipitor) 80 mg DAILY PO Last administered on 08/14/16 08 :15; Admin Dose 80 MG; Start 08/13/16 at 09:00 Benazepril HCl (Lotensin) 40 mg DAILY PO Last administered on 08/14/16 08:17; Admin Dose 40 MG; Start 08/13/16 at 09:00 Famotidine (Pepcid) 20 mg BID PO Last administered on 08/14/16 08:16; Admin Dose 20 MG; Start 08/12/16 at 21:00 Ferrous Sulfate (Ferrous Sulfate (Ec)) 325 mg BID PO Last administered on 08:16; Admin Dose 325 MG; Start 08/12/16 at 21:00 Gabapentin (Neurontin) 100 mg BID PO Last administered on 08/14/16 08:15; Admin Dose 100 MG; Start 08/12/16 at 21:00 Insulin Glargine (Lantus) 12 unit QHS SC Last administered on 08/13/16 21:40; Admin Dose 12 UNIT; Start 08/12/16 at 21:00 Loratadine (Claritin) 10 mg DAILY PO Last administered on 08/14/16 08:15; Admin Dose 10 MG; Start 08/13/16 at 09:00 Metoprolol Tartrate (Lopressor) 25 mg BID PO Last administered on 08/14/16 08: 17; Admin Dose 25 MG; Start 08/12/16 at 21:00 Fish Oil (Fish Oil) 1,000 mg BID PO Last administered on 08/14/16 08:15; Admin Dose 1,000 MG; Start 08/12/16 at 21:00 Ondansetron HCl (Zofran Inj) 4 mg Q6H PRN IV NAUSEA AND/OR VOMITING; Start at 17:30 Acetaminophen (Tylenol Tab) 650 mg Q6H PRN PO PAIN LEVEL 1-3 OR FEVER; Start at 17:30 Acetaminophen (Tylenol Supp) 650 mg Q6H PRN DE PAIN LEVEL 1-3 OR FEVER; Start 08/12/16 at 17:30 Acetaminophen/ Hydrocodone Bitart ([place] (5/325)) 1 tab Q6H PRN PO MODERATE PAIN LEVEL 4-6; Start 08/12/16 at 17:30 Acetaminophen/ Hydrocodone Bitart ([place] (5/325)) 2 tab Q6H PRN PO SEVERE PAIN LEVEL 7-10; Start 08/12/16 at 17:30 Morphine Sulfate (morphine) 2 mg Q4H PRN IV SEVERE PAIN LEVEL 7-10; Start 08/12 at 17:30 Docusate Sodium (Colace) 100 mg Q12H PRN PO CONSTIPATION; Start 08/12/16 at 17: 30 Magnesium Hydroxide (Milk Of Mag) 30 ml DAILY PRN PO CONSTIPATION; Start at 17:30 Bisacodyl (Dulcolax Supp) 10 mg DAILY PRN DE CONSTIPATION; Start 08/12/16 at 17 :30 Heparin Sodium (Porcine) (Heparin (5000 Units/0.5 ml)) 5,000 unit Q12 SC Last administered on 08/14/16 08:58; Admin Dose 5,000 UNIT; Start 08/12/16 at 21:00 Nitroglycerin (Nitroglycerin (Sl Tab) 0.4 Mg) 1 tab Q5M PRN SL CHEST PAIN; Start 08/12/16 at 17:30 Miscellaneous Information 1 ea NOTE XX ; Start 08/12/16 at 18:00 Glucose (Glutose) 15 gm Q15M PRN PO DECREASED GLUCOSE; Start 08/12/16 at 18:00 Glucose (Glutose) 22.5 gm Q15M PRN PO DECREASED GLUCOSE; Start 08/12/16 at 18: 00 Dextrose (D50w Syringe) 25 ml Q15M PRN IV DECREASED GLUCOSE; Start 08/12/16 at 18:00 Dextrose (D50w Syringe) 50 ml Q15M PRN IV DECREASED GLUCOSE; Start 08/12/16 at 18:00 Glucagon (Glucagen) 1 mg Q15M PRN IM DECREASED GLUCOSE; Start 08/12/16 at 18:00 Glucose (Glutose) 15 gm Q15M PRN BUCCAL DECREASED GLUCOSE; Start 08/12/16 at 18 :00 ISSA GIL MD August 14, 2016 10:23
[2016-08-14] MEDS ORDERED: ATOR80TA75 PO (12:29)
[2016-08-14] MEDS ORDERED: METO-448 PO (12:29)
[2016-08-14] MEDS ORDERED: NOVO3I SC (12:29)
[2016-08-14] MEDS ORDERED: BENA40TA41 PO (12:29)
[2016-08-14] MEDS ORDERED: ASPI-664 PO (12:29)
[2016-08-14] MEDS ORDERED: GABA100C14 PO (12:29)
[2016-08-14] MEDS ORDERED: LANT3I SC (12:29)
--- NOTE | 2016-08-14 12:37 | PDOCDIS ---
Discharge Instructions DIAGNOSIS Discharge Diagnosis: 1. Chest pain 2. Essential hypertension 3. CAD 4. Dyslipidemia 5. Diab CONDITION Patient Condition: Stable HOME CARE INSTRUCTIONS: Diet Instructions: Reduced CalorieSpecial Diet: carb count FOLLOW UP/APPOINTMENTS Appointments Follow-up with your primary care provider within a week MAYO LORENZ August 14, 2016 12:37
== END 2016-08-14 16:18 | disposition home or self-care (01) | DRG 313 ==
LOC: E/R 14:41 → TEL 16:45
PROVIDERS: ADMIT Hospitalist; ATTEND Hospitalist
DX: R07.9 Chest pain, unspecified (principal); I25.10 Atherosclerotic heart disease of native coronary artery without angina pectoris; E11.65 Type 2 diabetes mellitus with hyperglycemia; I10 Essential (primary) hypertension; E78.5 Hyperlipidemia, unspecified; Z98.61 Coronary angioplasty status; D50.9 Iron deficiency anemia, unspecified; Z79.82 Long term (current) use of aspirin
CPT/HCPCS: 36415; 71010; 80048; 80053; 80061; 82550; 82553; 82962; 83036; 83735; 84100; 84436; 84443; 84479; 84484; 85025; 85378; 85610; 85730; 93005; 93306; J1644; J1815

== ENCOUNTER 2018-03-28 11:03 | Emergency (ER) | payer MEDICAID ==
[~2018-03-28] VITALS: Wt 75.3 kg
[~2018-03-28 11:03] MED LIST: AMIT50TA3 PO; ASPI-817 PO; ATOR-2 PO; BENA40TA56 PO; FAMO20TA18 PO; FER325 PO; GABA100C14 PO; LANT3I SC; LORA10TA3 PO; METO-448 PO; NITR0.4T39 SL; NOVO3I SC; OMEG-135 PO
[2018-03-28 11:09] VITALS: BP 159/83; PULSE 74; RESP 18
--- NOTE | 2018-03-28 11:46 | ERD ---
ER Documentation Chief Complaint Chief Complaint POSSIBLE ALLERGIC REACTION TO VACCINES, HAS RASH HPI 57-year-old male, with history of diabetes, presents the emergency department, complaining of vesicular rash in a dermatomal distribution on the left arm that occurred 6 hours after having a zoster vaccine in the left arm 2 days ago. The pain is described as burning, constant, 6/10, associated with tingling but no weakness. ROS All systems reviewed and are negative except as per history of present illness. Medications Home Meds Active Scripts Hydrocodone/Acetaminophen ([place] 5-325 Tablet) 1 Each Tablet, 1 TAB PO BID PRN for PAIN, #10 TAB Prov:YARA ALVARADO MD 03/28/18 Valacyclovir HCl (Valtrex) 1,000 Mg Tablet, 1000 MG PO TID for 7 Days, TAB Prov:YARA ALVARADO MD 03/28/18 Insulin Glargine* (Lantus*) 100 Unit/Ml Soln, 18 UNIT SC QHS for 30 Days Prov:MAYO LORENZ 08/14/16 Insulin Aspart* (Novolog Insulin Pen*) 100 Unit/Ml Soln, 6 UNIT SC WITH MEALS for 30 Days Prov:MAYO LORENZ 08/14/16 Metoprolol Tartrate* (Lopressor*) 25 Mg Tab, 25 MG PO BID, #60 TAB Prov:MAYO LORENZ 08/14/16 Benazepril Hcl* (Benazepril Hcl*) 40 Mg Tablet, 40 MG PO DAILY, #30 TAB Prov:MAYO LORENZ 08/14/16 Gabapentin* (Gabapentin*) 100 Mg Capsule, 100 MG PO BID, #90 CAP Prov:MAYO LORENZ 08/14/16 Aspirin* (Aspirin* EC) 81 Mg Tablet.dr, 81 MG PO DAILY for 30 Days, TAB Prov:MAYO LORENZ 08/14/16 Atorvastatin* (Atorvastatin*) 80 Mg Tablet, 80 MG PO DAILY, #30 TAB Prov:MAYO LORENZ 08/14/16 Reported Medications Nitroglycerin* (Nitrostat*) 0.4 Mg Tab.subl, 0.4 MG SL Q5MIN PRN for CHEST PAIN, BOTTLE 08/12/16 Amitriptyline Hcl* (Amitriptyline Hcl*) 50 Mg Tablet, 50 MG PO QHS, #30 TAB 5/26/17 Famotidine* (Famotidine*) 20 Mg Tablet, 20 MG PO BID, #60 TAB 08/12/16 Loratadine* (Loratadine*) 10 Mg Tablet, 10 MG PO DAILY, #30 TAB 08/12/16 Ferrous Sulfate* (Ferrous Sulfate*) 325 Mg Tabec, 325 MG PO BID, TAB 08/12/16 [place]-3 Fatty Acids/Fish Oil (Fish Oil 1,000 mg Capsule) 1 Each Capsule, 1 EACH PO BID, CAP 08/12/16 Allergies Allergies: Coded Allergies: No Known Allergy (Unverified , 03/28/18) PMhx/Soc Medical and Surgical Hx: pt denies Surgical Hx History of Surgery: Yes Anesthesia Reaction: No Hx Neurological Disorder: No Hx Respiratory Disorders: No Hx Cardiac Disorders: Yes (CAD) Hx Psychiatric Problems: No Hx Miscellaneous Medical Probl: No Hx Alcohol Use: No Hx Substance Use: No Hx Tobacco Use: No Smoking Status: Never smoker FmHx Family History: diabetes Physical Exam Vitals Vital Signs Date Temp Pulse Resp B/P (MAP) Pulse Ox O2 O2 Flow FiO2 Time Delivery Rate 03/28/18 97.2 74 18 159/83 99 11:09 (108) Physical Exam Const: No acute distress Head: Atraumatic Eyes: Normal Conjunctiva ENT: Normal External Ears, Nose and Mouth. Neck: Full range of motion. No meningismus. Resp: Clear to auscultation bilaterally Cardio: Regular rate and rhythm, no murmurs Abd: Soft, non tender, non distended. Normal bowel sounds Skin: Left upper extremity: Erythematous rash with multiple blisters in a dermatomal distribution. Back: No midline or flank tenderness Ext: No cyanosis, or edema Neur: Awake and alert Psych: Normal Mood and Affect Procedures/MDM Differential diagnosis include but not limited to: Contact dermatitis, HSV infection, cellulitis, insect bite, scabies. impetigo. Physical examination and clinical presentation consistent most likely with shingles reactivation after zoster vaccine. During the ED course the patient remained stable, no new complaints. Results and clinical impression discussed with patient who agrees with management. The patient is stable to be treated outpatient and will be discharged home with a Rx for valacyclovir, some side effects of prescribed medications (headache, rash, nausea, vomiting, diarrhea, drowsiness, habituation, bleeding, hypertension, interactions with other medications) were reviewed. The patient was instructed to follow up with the primary care provider in the next 48h. If symptoms persist, worsen or new symptoms develop, then patient should return to the ED immediately. Instructions explained and given directly by me to the patient with acknowledgment and demonstrated understanding. Disclaimer: Inadvertent spelling and grammatical errors are likely due to EHR/dictation software use and do not reflect on the overall quality of patient care. Also, please note that the electronic time recorded on this note does not necessarily reflect the actual time of the patient encounter. Departure Diagnosis: Primary Impression: Shingles rash Condition: Stable Additional Instructions: Muchas katina por [facility] para ngo servicio. Esperamos que en ngo visita a la carlos de emergencia ngo problema medico haya sido solucionado y que se sienta mucho mejor. Para estar seguros que ngo mejoria sigue en proceso, le pedimos el favor de hacer heather tahmina de seguimiento medico con ngo doctor primario en los proximos 2-4 odonnell. Lleve con usted estos documentos y las medicinas recetadas. Si cindy sintomas empeoran, NO SE ESPERE, por favor regrese a carlos de emergencia INMEDIATAMENTE. En marc que usted no tenga un mdico de atencin primaria: Llame al mdico o clnica comunitaria de referencia que aparece abajo carlos las horas de consultorio para hacer heather tahmina para que le vean. CLINICAS: [facility] [phone] [facility] [phone] [facility] [phone] [address] [facility] [phone] [id number] [place] [phone] [address] [facility]. [phone] YARA YI MD Mar 28, 2018 11:46
[2018-03-28] MEDS ORDERED: VALA10004 PO (11:48)
[2018-03-28] MEDS ORDERED: HYDR-4011 PO (11:48)
== END 2018-03-28 12:10 | disposition home or self-care (01) ==
LOC: FTE 11:03
DX: T88.1XXA Other complications following immunization, not elsewhere classified, initial encounter (principal); I25.10 Atherosclerotic heart disease of native coronary artery without angina pectoris; E11.9 Type 2 diabetes mellitus without complications; B02.9 Zoster without complications; Y65.8 Other specified misadventures during surgical and medical care; Z79.4 Long term (current) use of insulin; Z79.82 Long term (current) use of aspirin
CPT/HCPCS: 99283